=== PATIENT | male | born 1960 | race Caucasian/White ===

== ENCOUNTER 2017-08-05 09:43 | Day surgery (SDC) | payer MEDICARE, OTHER ==
[~2017-08-05] VITALS: Ht 182.9 cm; Wt 62.6 kg
[2017-08-05] MEDS ORDERED: BUSPIRONE5 MG PO (10:28)
[2017-08-05] MEDS ORDERED: ENSURE (10:29)
[2017-08-05] MEDS ORDERED: OMEPRAZOLE20 MG PO (10:29)
[2017-08-05] MEDS ORDERED: MULTI VIT PO (10:29)
[2017-08-05] MEDS ORDERED: LORATADINE10 M1 PO (10:29)
[2017-08-05] MEDS ORDERED: ASPIRIN81 MG PO (10:29)
[2017-08-05] MEDS ORDERED: DIVALPROEX SOD250 MG PO (10:30)
[2017-08-05] MEDS ORDERED: FUROSEMIDE20 MG PO (10:30)
[2017-08-05] MEDS ORDERED: LOSARTAN POT25 MG PO (10:30)
[2017-08-05] MEDS ORDERED: LOPROX EX (10:30)
[2017-08-05] MEDS ORDERED: METOPROL TAR25 MG PO (10:30)
[2017-08-05] MEDS ORDERED: OLANZAPINE10 MG PO (10:31)
[2017-08-05] MEDS ORDERED: RISPERIDONE0.5 MG PO (10:31)
[2017-08-05] MEDS ORDERED: MONTELUKAST SOD10 MG PO (10:31)
[2017-08-05 12:30] VITALS: BP 101/64
== END 2017-08-05 13:05 | disposition other institution (70) ==
LOC: ENDO 09:43 → ORM 12:55 → ENDO 13:05 → ORM 13:25
PROVIDERS: ATTEND Internal Medicine Gastroenterology
PROC: 0D758ZZ Dilation of Esophagus, Via Natural or Artificial Opening Endoscopic (ICD-10-PCS; principal; 2017-08-05)
PROC: 0DB98ZX Excision of Duodenum, Via Natural or Artificial Opening Endoscopic, Diagnostic (ICD-10-PCS; 2017-08-05)
PROC: 0DB48ZX Excision of Esophagogastric Junction, Via Natural or Artificial Opening Endoscopic, Diagnostic (ICD-10-PCS; 2017-08-05)
PROC: 0DBN8ZX Excision of Sigmoid Colon, Via Natural or Artificial Opening Endoscopic, Diagnostic (ICD-10-PCS; 2017-08-05)
PROC: 0DBE8ZX Excision of Large Intestine, Via Natural or Artificial Opening Endoscopic, Diagnostic (ICD-10-PCS; 2017-08-05)
DX: K22.2 Esophageal obstruction (principal); K21.9 Gastro-esophageal reflux disease without esophagitis; R11.2 Nausea with vomiting, unspecified; R63.4 Abnormal weight loss; R10.31 Right lower quadrant pain; R19.7 Diarrhea, unspecified; D50.9 Iron deficiency anemia, unspecified; K44.9 Diaphragmatic hernia without obstruction or gangrene; Q40.2 Other specified congenital malformations of stomach; K29.50 Unspecified chronic gastritis without bleeding; K64.4 Residual hemorrhoidal skin tags; K64.8 Other hemorrhoids; K63.5 Polyp of colon; I10 Essential (primary) hypertension; F31.9 Bipolar disorder, unspecified; E07.9 Disorder of thyroid, unspecified

== ENCOUNTER 2018-07-14 08:56 | Day surgery (SDC) | payer MEDICARE, OTHER ==
[~2018-07-14] VITALS: Ht 182.9 cm; Wt 61.7 kg
[~2018-07-14 08:56] MED LIST: AMITIZA24 MC1 PO; ASPIRIN81 MG PO; BOOST PLUS PO; BUSPIRONE5 MG PO; DEPAKOTE500 MG PO; ENSURE; FERR SULFATE325 MG PO; FUROSEMIDE20 MG PO; LOPROX EX; LORATADINE10 M1 PO; LOSARTAN POT25 MG PO; METOPROL TAR25 MG PO; MONTELUKAST SOD10 MG PO; MULTI VIT PO; OLANZAPINE10 MG PO; OMEPRAZOLE20 MG PO; REMERON7.5 MG PO; RISPERIDONE0.5 MG PO; ZYPREXA20 MG PO; [UNRECOGNIZED DRUG - OTHER] PO
[2018-07-14 11:20] VITALS: BP 128/86
== END 2018-07-14 11:05 | disposition home or self-care (01) ==
LOC: ENDO 08:56 → ORM 13:15
PROVIDERS: ATTEND Internal Medicine Gastroenterology
PROC: 0DJD8ZZ Inspection of Lower Intestinal Tract, Via Natural or Artificial Opening Endoscopic (ICD-10-PCS; principal; 2018-07-14)
DX: K59.00 Constipation, unspecified (principal); K64.8 Other hemorrhoids; K64.4 Residual hemorrhoidal skin tags; D50.9 Iron deficiency anemia, unspecified; I10 Essential (primary) hypertension; F03.90 Unspecified dementia, unspecified severity, without behavioral disturbance, psychotic disturbance, mood disturbance, and anxiety; Z86.010 Personal history of colon polyps